=== PATIENT | male | born 1955 | race American Indian/Alaskan Native ===

== ENCOUNTER 2021-05-13 18:02 | Emergency (ER) | payer BC, OTHER ==
[2021-05-13 18:48] VITALS: BP 133/68
--- NOTE | 2021-05-13 18:57 | Emergency Department Report ---
Chief Complaint: Dizziness Stated Complaint: BLOOD PRESSURE HIGH/DIZZY Time Seen by Provider: 05/13/21 18:55 - HPI History of Present Illness: 66 YO AA male comes to ER from work via POV. 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 He said he got dizzy and thought maybe his bp was high so he comes to ER for bp check No cp no sob no dizziness no fever/chills no cough on norvasc at home for bp- he is taking as rx He adds he had a family member (18 yo) kidnapped and killed in [place] this week. And another family member younger than the pt- had a stroke recently. He thinks the stress just got the best of him while at work today. PMH htn NO hx DM/CAD/CVA PSH hernia prostate Rx norvasc no cig/etoh/drugs mom and dad dec ca - ROS Review of Systems: none - Exam Vital Signs: Vital Signs 05/13/21 05/13/21 18:47 18:52 Temperature 98.9 F Pulse Rate 64 Respiratory 18 Rate Blood Pressure 133/68 O2 Sat by Pulse 98 99 Oximetry Physical Exam: alert/oriented thin- appears in good health; active s1s2 no edema lungs cta abd snt neuro intact with no focal def. CN exam WNL ambulatory and nad one exam MSE screening note: Focused history and physical exam performed. Due to findings the following was ordered: MSE home Will see PCP Pt understands he can return if he develops symptoms - cp/sob/dizziness etc. Pt ambulatory and non ill appearing on dc BP normal - pt MSE from ER On d/c again denies any symptoms; is ambulatory and nad ED Disposition for MSE Clinical Impression: BP check Disposition: 01 HOME / SELF CARE / HOMELESS Is pt being admited?: No Does the pt Need Aspirin: No Condition: Stable Additional Instructions: continue home meds stay well hydrated with water follow up with pcp in 48 hours for recheck return to ER if needed- for chest pain/shortness of breath/ weakness etc. Referrals: DANDY MONAE MD [Staff Physician] - 3-5 Days Forms: Work/School Release Form(ED) Time of Disposition: 19:01
== END 2021-05-13 19:30 | disposition home or self-care (01) ==
LOC: ED 18:02
DX: Z01.30 Encounter for examination of blood pressure without abnormal findings (principal); R42 Dizziness and giddiness
CPT/HCPCS: 99281